=== PATIENT | male | born 1995 | race African-American/Black ===

== ENCOUNTER 2019-04-21 18:36 | Emergency (ER) | payer SELFPAY ==
[2019-04-23 08:31] VITALS: BMI 23.7
== END 2019-04-21 19:33 | disposition left against medical advice (07) ==
LOC: D.ER 18:36
DX: R19.7 Diarrhea, unspecified (principal)

== ENCOUNTER 2019-04-22 05:14 | Observation (INO) | payer SELFPAY ==
[~2019-04-22] VITALS: Ht 185.4 cm; Wt 81.6 kg
[2019-04-22 05:44] LABS: BASOPHILS 0 % (0-2); EOSINOPHILS 0.1 % (0-7); HEMATOCRIT 46.4 % (42.0-54.0); HEMOGLOBIN 16.2 g/dL (13.5-17.5); IMMATURE GRANULOCYTES 0.1 % (0-5); LYMPHOCYTES 13.5 % (15-50); MCH 30.3 pg (26.0-34.0); MCHC 34.9 g/dL (31.0-37.0); MCV 86.9 fL (80.0-100.0); MEAN PLATELET VOLUME 10.8 fL (7.4-10.4); MONOCYTES 9.4 % (2-11); NEUTROPHILS 76.9 % (40-80); PLATELET COUNT 255 10x3/uL (130-400); RBC 5.34 10x6/uL (4.20-6.10); RDW 11.8 % (11.5-14.5); WBC 10.4 10x3/uL (4.8-10.8)
[2019-04-22 05:54] LABS: CALC OSMOLALITY 280 mosm/kg (275-300); CALCIUM 9.3 mg/dL (8.5-10.1); CARBON DIOXIDE 30.1 mmol/L (21.0-32.0); CHLORIDE - SERUM 98 mmol/L (98-107); CREATININE - SERUM 1.1 mg/dL (0.6-1.3); GLUCOSE 102 mg/dL (74-106); POTASSIUM - SERUM 3.6 mmol/L (3.5-5.1); SODIUM 139 mmol/L (136-145); UREA NITROGEN 22 mg/dL (7-18); eGFR NON AFRICAN AMERICAN 88 mL/min (90-120)
[2019-04-22 06:02] LABS: ALKALINE PHOSPHATASE 62 U/L (46-116); ALT (SGPT) 22 U/L (10-68); AMYLASE - SERUM 73 U/L (25-115); BILIRUBIN - TOTAL 0.66 mg/dL (0.2-1.3); LIPASE 52 U/L (73-393); PROTEIN - SERUM 7.4 g/dL (6.4-8.2); TROPONIN-I < 0.017 ng/mL (0.000-0.060)
--- NOTE | 2019-04-22 06:24 | NUR ---
PT LEFT ED VIA STRETCHER FOR CT.
[2019-04-22 06:48] VITALS: BP 113/82
--- NOTE | 2019-04-22 06:48 | NUR ---
PT RETURNED FROM CT. PT REPORTS DECREASE IN DISCOMFORT.
[2019-04-22 08:11] VITALS: BP 118/98
[2019-04-22 09:03] LABS: APPEARANCE SL CLDY (CLEAR); BACTERIA FEW /hpf (NEGATIVE); BILIRUBIN NEGATIVE (NEGATIVE); COLOR YELLOW (YELLOW); EPITHELIAL CELLS RARE /hpf (0-5); GLUCOSE NEGATIVE (NEGATIVE); KETONE LARGE mg/dL (NEGATIVE); MUCUS <1+ /lpf (NONE SEEN); NITRITE NEGATIVE (NEGATIVE); PROTEIN NEGATIVE (NEGATIVE); RED CELLS - URINE OCC /hpf (0-5); SPECIFIC GRAVITY 1.005 (1.005-1.020); UROBILINOGEN NORMAL (NORMAL)
[2019-04-22 09:04] LABS: HYALINE CAST RARE /lpf (NONE SEEN)
--- NOTE | 2019-04-22 09:14 | NUR ---
RECEIVED PATIENT FROM ER VIA STRETCHER ACCOMPANIED BY STAFF. NO C/O PAIN. NO S/S OF ACUTE DISTRESS NOTED. IV TO RIGHT FOREARM, NS INFUSING @ 100ML/HR AND PROTONIX DRIP. SITE PATENT WITHOUT REDNESS OR SWELLING. DENIES ANY NEEDS AT THIS TIME. CALL LIGHT IN REACH. WILL CONTINUE TO MONITOR.
[2019-04-22 11:45] VITALS: BP 100/53; BMI 23.8
[2019-04-22 14:04] VITALS: BP 120/78
--- NOTE | 2019-04-22 16:08 | NUR ---
I have reviewed this patient and I concur with the Shift Assessment completed by the Licensed Practical Nurse today this shift.
[2019-04-22 16:18] VITALS: BP 106/53
--- NOTE | 2019-04-22 18:26 | NUR ---
ALERT AND ORIENTED, SITTING UP IN BED. NO C/O PAIN. NO S/S OF ACUTE DISTRESS NOTED. DENIES ANY NEEDS AT THIS TIME. CALL LIGHT IN REACH. WILL CONTINUE TO MONITOR.
[2019-04-22 20:00] VITALS: BP 103/45
--- NOTE | 2019-04-22 21:00 | NUR ---
A/O WITH NO SIGNS OF DISTRESS. IV TO THE RT AC WITH NO REDNESS OR SWELLING NOTED. REPORTS THAT HE IS TOLERATING CLEAR LIQUIDS. DENIES NO OTHER NEEDS AT THIS TIME. CONTINUE PLAN OF CARE.
[2019-04-23] VITALS: BP 131/71
[2019-04-23 04:00] VITALS: BP 113/49
[2019-04-23 06:42] LABS: BASOPHILS 0.2 % (0-2); EOSINOPHILS 1.2 % (0-7); HEMATOCRIT 43.6 % (42.0-54.0); HEMOGLOBIN 14.5 g/dL (13.5-17.5); IMMATURE GRANULOCYTES 0.2 % (0-5); MCH 29.7 pg (26.0-34.0); MCHC 33.3 g/dL (31.0-37.0); MEAN PLATELET VOLUME 11.6 fL (7.4-10.4); NEUTROPHILS 45.4 % (40-80); PLATELET COUNT 250 10x3/uL (130-400); RBC 4.89 10x6/uL (4.20-6.10); RDW 11.9 % (11.5-14.5)
[2019-04-23 06:43] LABS: MCV 89.2 fL (80.0-100.0)
[2019-04-23 06:52] LABS: CALCIUM 8.6 mg/dL (8.5-10.1); CARBON DIOXIDE 32.4 mmol/L (21.0-32.0); CHLORIDE - SERUM 106 mmol/L (98-107); CREATININE - SERUM 1.2 mg/dL (0.6-1.3); GLUCOSE 85 mg/dL (74-106); SODIUM 140 mmol/L (136-145); eGFR NON AFRICAN AMERICAN 80 mL/min (90-120)
[2019-04-23 06:53] LABS: CALC OSMOLALITY 277 mosm/kg (275-300); POTASSIUM - SERUM 4.2 mmol/L (3.5-5.1); UREA NITROGEN 13 mg/dL (7-18)
--- NOTE | 2019-04-23 07:10 | NUR ---
ALERT AND ORIENTED, RESTING IN BED. NO C/O PAIN. NO S/S OF ACUTE DISTRESS NOTED. IV TO RIGHT AC, NS INFUSING @ 100ML/HR. SITE PATENT WITHOUT REDNESS OR SWELLING. DENIES ANY NEEDS AT THIS TIME. CALL LIGHT IN REACH. WILL CONTINUE TO MONITOR.
[2019-04-23 08:01] VITALS: BP 122/79
[2019-04-23 08:31] VITALS: Ht 185.4 cm; Wt 81.6 kg
--- NOTE | 2019-04-23 12:44 | NUR ---
LYING INN BED,WITHOUT NEEDS.CALL LIGHT IN REACH
[2019-04-23 14:03] VITALS: BP 91/64
[2019-04-23 15:53] VITALS: BP 123/61
--- NOTE | 2019-04-23 18:36 | NUR ---
SITTING UP IN BED. DENIES ANY NEEDS AT THIS TIME. CALL LIGHT IN REACH. WILL CONTINUE TO MONITOR.
[2019-04-23 20:52] VITALS: BP 117/57
[2019-04-24 01:30] VITALS: BP 120/60
--- NOTE | 2019-04-24 02:29 | NUR ---
REC'D. AT [facility] OF SHIFT WALKING IN HALLWAY WITH VISITOR.DENIES ANY PAIN OR DIFFICULTY SWALLOWING STATES FEELS SO MUCH BETTER. WILL CONTINUE TO MONITOR FOR ANY CHGES AND FOLLOW CURRENT PLAN OF CARE
[2019-04-24 05:14] VITALS: BP 133/64
[2019-04-24 06:46] LABS: BASOPHILS 0.2 % (0-2); EOSINOPHILS 1.7 % (0-7); HEMATOCRIT 43.6 % (42.0-54.0); HEMOGLOBIN 14.7 g/dL (13.5-17.5); IMMATURE GRANULOCYTES 0.2 % (0-5); LYMPHOCYTES 36.2 % (15-50); MCH 29.9 pg (26.0-34.0); MCHC 33.7 g/dL (31.0-37.0); MCV 88.8 fL (80.0-100.0); MEAN PLATELET VOLUME 11.6 fL (7.4-10.4); MONOCYTES 11.4 % (2-11); NEUTROPHILS 50.3 % (40-80); PLATELET COUNT 253 10x3/uL (130-400); RBC 4.91 10x6/uL (4.20-6.10); RDW 11.9 % (11.5-14.5); WBC 6.4 10x3/uL (4.8-10.8)
[2019-04-24 07:07] LABS: ALBUMIN 3.3 g/dL (3.4-5.0); ALKALINE PHOSPHATASE 58 U/L (46-116); ALT (SGPT) 21 U/L (10-68); BILIRUBIN - TOTAL 0.27 mg/dL (0.2-1.3); CALC OSMOLALITY 279 mosm/kg (275-300); CALCIUM 8.7 mg/dL (8.5-10.1); CARBON DIOXIDE 31.6 mmol/L (21.0-32.0); CHLORIDE - SERUM 103 mmol/L (98-107); CREATININE - SERUM 1.2 mg/dL (0.6-1.3); GLUCOSE 84 mg/dL (74-106); POTASSIUM - SERUM 3.8 mmol/L (3.5-5.1); PROTEIN - SERUM 6.4 g/dL (6.4-8.2); SODIUM 141 mmol/L (136-145); UREA NITROGEN 13 mg/dL (7-18); eGFR NON AFRICAN AMERICAN 80 mL/min (90-120)
--- NOTE | 2019-04-24 07:30 | NUR ---
sitting up in bed with frind at bedside. alert and orented able to voice needs and wants to staff. no s/s of distress. call light in reach.
[2019-04-24 08:57] VITALS: BP 117/69
--- NOTE | 2019-04-24 09:02 | MORECARE ---
CASE MANAGEMENT DISCHARGE SUMMARY PATIENT: LAURA STEINBERG UNIT: [id number] ADM DATE: 04/22/19 AGE: 24 : [birth year] SEX: M ROOM/BED: D.2239 AUTHOR: ONUR,DOC PHYSICIAN: REFERRING PHYSICIAN: ANAY WEBER MD DATE OF SERVICE: 04/24/19 Discharge Plan Patient Name: LAURA STEINBERG Facility: [facility]:[place] : 1995 Planned Disposition: Home Anticipated Discharge Date: 04/24/19 Discharge Date: Expected LOS: 2 Initial Reviewer: [email or web address] Initial Review Date: 04/24/2019 Generated: 04/24/19 10:01 am Comments DCP- Discharge Planning Updated by [email or web address]: Jessica Danielle on 04/24/19 7:[address] Patient Name: LAURA STEINBERG Admission Status: Elective Accout number: [id number] Admission Date: 04-22-2019 : 1995 Admission Diagnosis: Attending: KYARA Current LOS: 2 Anticipated DC Date: 04-24-2019 Planned Disposition: Home Primary Insurance: UNINSURED DISCOUNT PLAN Discharge Planning Comments: CM met with patient to complete initial dc planning assessment. CM educated patient on the CM role and verbal consent given by patient to complete assessment. Patient lives at home with Lorna Galindo. At discharge patient plans to return and feels this is a safe discharge. CM discussed availability of home health, rehab services, and medical equipment. Patient denied known discharge needs at this time. CM will continue to follow and will assist as needed with dc plans/needs. Souvenir Assembler: Jessica Danielle DCPIA - Discharge Planning Initial Assessment Updated by [email or web address]: Jessica Danielle on 04/24/19 8:59 am * Is the patient Alert and Oriented? Yes * PCP None * [facility] * Preadmission Environment Home with Family * ADLs Independent * Equipment None * List name and contact numbers for known caregivers / representatives who currently or will assist patient after discharge: Lorna Galindo - [phone] * Verbal permission to speak to the caregivers and representatives has been obtained from the patient. Yes * Community resources currently utilized None * Additional services required to return to the preadmission environment? No * Can the patient safely return to the preadmission environment? Yes * Has this patient been hospitalized within the prior 30 days at any hospital? No Patient Name: LAURA STEINBERG Page [id number] at 0902 All edits/amendments must be made on the electronic document DICTATION DATE: 04/24/19900 YEAST MAKER: MARCIO 04/24/19900 RPT#: [id number] DC DATE: STATUS: ADM IN [facility] [address] [place] [address] END OF REPORT
[2019-04-24] MEDS ORDERED: PROTONIX40 MG PO (09:15)
[2019-04-24] MEDS ORDERED: CARAFATE1 G PO (09:15)
[2019-04-24] MEDS ORDERED: NICODERM C1 PATCH .1 TRANSDERM (09:15)
--- NOTE | 2019-04-24 09:38 | NUR ---
PT ALERT X 4. BREATH SOUNDS CLEAR BILAT. NO IV ACCESS AT THIS TIME. FLU SHOT ADMINISTERED TO RIGHT ARM, PT TOLERATED WELL. FAMILY AT BEDSIDE. PT REPORTING NO PAIN AT THIS TIME. BED LOW, CALL LIGHT IN REACH. NO OTHER NEEDS AT THIS TIME.
--- NOTE | 2019-04-24 09:57 | NUR ---
DISCHARGE PAPERWORK SIGNED, ALL QUESTIONS ANSWERED. PT REQUESTED TO AMBULATE OUT.
--- NOTE | 2019-04-25 12:22 | MORECARE ---
CASE MANAGEMENT DISCHARGE SUMMARY PATIENT: LAURA STEINBERG UNIT: [id number] ADM DATE: 04/22/19 AGE: 24 : [birth year] SEX: M ROOM/BED: D.2239 AUTHOR: ONUR,DOC PHYSICIAN: REFERRING PHYSICIAN: ANAY WEBER MD DATE OF SERVICE: 04/25/19 Discharge Plan Patient Name: LAURA STEINBERG Facility: [facility]:[place] : 1995 Planned Disposition: Home Anticipated Discharge Date: 04/24/19 Discharge Date: 04/24/2019 Expected LOS: 2 Initial Reviewer: [email or web address] Initial Review Date: 04/24/2019 Generated: 04/25/19 1:22 pm Comments DCP- Discharge Planning Updated by [email or web address]: Jessica Danielle on 04/24/19 7:[address] Patient Name: LAURA STEINBERG Admission Status: Elective Accout number: [id number] Admission Date: 04-22-2019 : 1995 Admission Diagnosis: Attending: KYARA Current LOS: 2 Anticipated DC Date: 04-24-2019 Planned Disposition: Home Primary Insurance: UNINSURED DISCOUNT PLAN Discharge Planning Comments: CM met with patient to complete initial dc planning assessment. CM educated patient on the CM role and verbal consent given by patient to complete assessment. Patient lives at home with Lorna Galindo. At discharge patient plans to return and feels this is a safe discharge. CM discussed availability of home health, rehab services, and medical equipment. Patient denied known discharge needs at this time. CM will continue to follow and will assist as needed with dc plans/needs. Business Services Sales Representative: Jessica Danielle DCPIA - Discharge Planning Initial Assessment Updated by [email or web address]: Jessica Danielle on 04/24/19 8:59 am * Is the patient Alert and Oriented? Yes * PCP None * [facility] * Preadmission Environment Home with Family * ADLs Independent * Equipment None * List name and contact numbers for known caregivers / representatives who currently or will assist patient after discharge: Lorna Galindo - [phone] * Verbal permission to speak to the caregivers and representatives has been obtained from the patient. Yes * Community resources currently utilized None * Additional services required to return to the preadmission environment? No * Can the patient safely return to the preadmission environment? Yes * Has this patient been hospitalized within the prior 30 days at any hospital? No Last DP export: 04/24/19 8:02 am Patient Name: LAURA STEINBEGR Page [id number] at 1222 All edits/amendments must be made on the electronic document DICTATION DATE: 04/25/19 1222 FINANCIAL ADVISOR: MARCIO 04/25/19 1222 RPT#: [id number] DC DATE:04/24/19 STATUS: DIS IN [facility] [address] [place] [address] END OF REPORT
== END 2019-04-24 10:57 | disposition home or self-care (01) ==
LOC: D.ER 05:14 → D.MS 07:08 → OBSVTIME 07:57 → D.MS 04-24 10:57
PROVIDERS: Family Medicine; ADMIT Family Medicine; ATTEND Family Medicine
DX: R10.9 Unspecified abdominal pain (principal); R11.2 Nausea with vomiting, unspecified; K20.9 Esophagitis, unspecified; K29.70 Gastritis, unspecified, without bleeding; K26.3 Acute duodenal ulcer without hemorrhage or perforation; E86.0 Dehydration

== ENCOUNTER 2019-04-30 09:20 | Emergency (ER) | payer SELFPAY ==
[~2019-04-30] VITALS: Ht 185.4 cm; Wt 79.5 kg
[~2019-04-30 09:20] MED LIST: CARAFATE1 G PO; NICODERM C1 PATCH .1 TRANSDERM; PROTONIX40 MG PO
[2019-04-30 09:24] VITALS: Ht 185.4 cm; Wt 79.5 kg
[2019-04-30 10:18] LABS: CALC OSMOLALITY 287 mosm/kg (275-300); CARBON DIOXIDE 34.9 mmol/L (21.0-32.0); CHLORIDE - SERUM 106 mmol/L (98-107); CREATININE - SERUM 1.2 mg/dL (0.6-1.3); GLUCOSE 99 mg/dL (74-106); POTASSIUM - SERUM 4.4 mmol/L (3.5-5.1); SODIUM 143 mmol/L (136-145); UREA NITROGEN 20 mg/dL (7-18); eGFR NON AFRICAN AMERICAN 80 mL/min (90-120)
[2019-04-30 10:27] LABS: ALBUMIN 3.3 g/dL (3.4-5.0); ALKALINE PHOSPHATASE 51 U/L (46-116); ALT (SGPT) 20 U/L (10-68); AMYLASE - SERUM 84 U/L (25-115); BILIRUBIN - TOTAL 0.43 mg/dL (0.2-1.3); LIPASE 140 U/L (73-393); PROTEIN - SERUM 6.5 g/dL (6.4-8.2); TROPONIN-I < 0.017 ng/mL (0.000-0.060)
[2019-04-30 10:54] LABS: BASOPHILS 0.2 % (0-2); EOSINOPHILS 0.9 % (0-7); HEMATOCRIT 44.2 % (42.0-54.0); HEMOGLOBIN 14.8 g/dL (13.5-17.5); IMMATURE GRANULOCYTES 0.2 % (0-5); LYMPHOCYTES 27.8 % (15-50); MCH 29.8 pg (26.0-34.0); MCHC 33.5 g/dL (31.0-37.0); MCV 88.9 fL (80.0-100.0); MEAN PLATELET VOLUME 11.5 fL (7.4-10.4); MONOCYTES 6.5 % (2-11); NEUTROPHILS 64.4 % (40-80); PLATELET COUNT 261 10x3/uL (130-400); RBC 4.97 10x6/uL (4.20-6.10); WBC 4.6 10x3/uL (4.8-10.8)
[2019-04-30 11:28] LABS: APPEARANCE CLOUDY (CLEAR); BILIRUBIN NEGATIVE (NEGATIVE); COLOR YELLOW (YELLOW); GLUCOSE NEGATIVE (NEGATIVE); KETONE NEGATIVE (NEGATIVE); NITRITE NEGATIVE (NEGATIVE); PROTEIN NEGATIVE (NEGATIVE); UROBILINOGEN NORMAL (NORMAL)
[2019-04-30 11:29] LABS: BACTERIA FEW /hpf (NEGATIVE); EPITHELIAL CELLS 0-5 /hpf (0-5); RED CELLS - URINE RARE /hpf (0-5)
[2019-04-30 11:31] LABS: AMORPHOUS SEDIMENT <1+ /lpf (NONE SEEN); MUCUS <1+ /lpf (NONE SEEN)
[2019-04-30] MEDS ORDERED: MACROBID100 MG PO (11:54)
[2019-04-30] MEDS ORDERED: PEPCID40 MG PO (11:54)
[2019-04-30] MEDS ORDERED: KEFLEX500 MG PO (11:54)
[2019-04-30 13:06] VITALS: BP 125/74
== END 2019-04-30 13:07 | disposition home or self-care (01) ==
LOC: D.ER 09:20
PROVIDERS: Family Medicine
DX: R10.9 Unspecified abdominal pain (principal); K21.9 Gastro-esophageal reflux disease without esophagitis; R11.2 Nausea with vomiting, unspecified; N39.0 Urinary tract infection, site not specified

== ENCOUNTER 2019-05-03 09:50 | Emergency (ER) | payer SELFPAY ==
[~2019-05-03] VITALS: Ht 185.4 cm; Wt 77.3 kg
[~2019-05-03 09:50] MED LIST changes: +KEFLEX500 MG PO; +MACROBID100 MG PO; +PEPCID40 MG PO
[2019-05-03 09:54] VITALS: Ht 185.4 cm; Wt 77.3 kg
[2019-05-03 10:08] LABS: BASOPHILS 0.1 % (0-2); EOSINOPHILS 0.1 % (0-7); HEMATOCRIT 48.6 % (42.0-54.0); HEMOGLOBIN 16.5 g/dL (13.5-17.5); IMMATURE GRANULOCYTES 0.1 % (0-5); LYMPHOCYTES 27.7 % (15-50); MCH 30.2 pg (26.0-34.0); MCV 88.8 fL (80.0-100.0); MEAN PLATELET VOLUME 10.7 fL (7.4-10.4); MONOCYTES 4.9 % (2-11); NEUTROPHILS 67.1 % (40-80); PLATELET COUNT 311 10x3/uL (130-400); RBC 5.47 10x6/uL (4.20-6.10); RDW 11.9 % (11.5-14.5); WBC 7.7 10x3/uL (4.8-10.8)
[2019-05-03 10:21] LABS: CALC OSMOLALITY 279 mosm/kg (275-300); CALCIUM 9.6 mg/dL (8.5-10.1); CARBON DIOXIDE 32.2 mmol/L (21.0-32.0); CHLORIDE - SERUM 102 mmol/L (98-107); CREATININE - SERUM 1.3 mg/dL (0.6-1.3); GLUCOSE 99 mg/dL (74-106); POTASSIUM - SERUM 5.2 mmol/L (3.5-5.1); SODIUM 139 mmol/L (136-145); UREA NITROGEN 19 mg/dL (7-18); eGFR NON AFRICAN AMERICAN 73 mL/min (90-120)
[2019-05-03 10:36] LABS: ALBUMIN 4.1 g/dL (3.4-5.0); ALKALINE PHOSPHATASE 60 U/L (46-116); ALT (SGPT) 24 U/L (10-68); AMYLASE - SERUM 61 U/L (25-115); BILIRUBIN - TOTAL 0.63 mg/dL (0.2-1.3); LIPASE 97 U/L (73-393); PROTEIN - SERUM 7.7 g/dL (6.4-8.2); TROPONIN-I < 0.017 ng/mL (0.000-0.060)
[2019-05-03 11:36] LABS: UDS - AMPHET POSITIVE QUAL (NEGATIVE); UDS - BARB NEGATIVE QUAL (NEGATIVE); UDS - BENZO NEGATIVE QUAL (NEGATIVE); UDS - COCAINE NEGATIVE QUAL (NEGATIVE); UDS - OPIATE NEGATIVE QUAL (NEGATIVE); UDS - PCP NEGATIVE QUAL (NEGATIVE); UDS - THC POSITIVE QUAL (NEGATIVE)
[2019-05-03] MEDS ORDERED: CARAFATE1 G PO (11:44)
[2019-05-03] MEDS ORDERED: OMEPRAZOLE20 M1 PO (11:44)
[2019-05-03 11:46] LABS: APPEARANCE SL CLDY (CLEAR); BILIRUBIN NEGATIVE (NEGATIVE); COLOR YELLOW (YELLOW); GLUCOSE NEGATIVE (NEGATIVE); KETONE LARGE mg/dL (NEGATIVE); NITRITE NEGATIVE (NEGATIVE); PROTEIN NEGATIVE (NEGATIVE); RED CELLS - URINE OCC /hpf (0-5)
[2019-05-03 11:47] LABS: EPITHELIAL CELLS 0-5 /hpf (0-5)
[2019-05-03 11:49] LABS: BACTERIA FEW /hpf (NEGATIVE)
[2019-05-03 12:00] VITALS: BP 132/74
== END 2019-05-03 12:02 | disposition home or self-care (01) ==
LOC: D.ER 09:50
PROVIDERS: Emergency Medicine
DX: K29.70 Gastritis, unspecified, without bleeding (principal); Z91.14 Patient's other noncompliance with medication regimen